=== PATIENT | male | born 1970 | race Caucasian/White ===

== ENCOUNTER 2017-12-12 12:24 | Inpatient (IN) ==
[2017-12-12] MEDS ORDERED: Tetanus/Diphtheria Toxoid Adult Vaccine Inj 0.5 ML Vial IM ONE (13:06)
[2017-12-12] MEDS ORDERED: Acetaminophen 325 MG Tablet PO ONE (13:12)
--- NOTE | 2017-12-12 13:12 | ED ---
HPI General Chief Complaint: Chest Pain Stated Complaint: Left side pain/left ankle complaint Time Seen by Provider: 12/12/17 12:46 Source: patient Mode of arrival: ambulatory Limitations: no limitations History of Present Illness HPI Narrative: 47 years old male complains of laceration to left eyebrow, left chest wall pain and left ankle pain. Patient states that he fell this morning. Patient denies loss of consciousness. She denies any headache or neck pain. Patient denies any visual change. Complaint of severe sharp pain localized left chest wall and left ankle. Patient denies any shortness of breath. Patient denies abdominal pain. Patient denies any nausea vomiting diarrhea. Patient denies any back pain. Patient states that he has productive cough recently. Patient states that he had history of left ankle injury that required surgery in the past. Patient states that he is feeling suicidal today also. complaint: fall Onset (ago): hour(s) Fall from: standing Fall witnessed: no Place fall occurred: street Loss of consciousness: none Prolonged down time: no Symptoms prior to fall: none Context: tripped/slipped Location of injury: face and chest Location of injury - extremities: Left: ankle Severity: moderate Severity scale (1-10): 7 Quality: sharp Related Data Home Medications Medication Instructions Recorded Confirmed No Known Home Medications 12/12/17 12/12/17 Allergies Allergy/AdvReac Type Severity Reaction Status Date / Time naproxen Allergy Severe Hives Unverified 12/12/17 12:48 Review of Systems ROS: all other systems reviewed are negative PMFSH Medical History Medical History Ankle fracture, left (Acute) Degenerative disc disease (Acute) Social History Social History Substance History: Active Abuse Second Hand Smoke Exposure: No Smoking Status: Current every day smoker Tobacco Type: Cigarettes How Often Do You Have a Drink Containing Alcohol: 4 or more times a week Recent Travel in [facility] within the Last 8 Weeks: No Recent Out of Country Travel within the Last 8 Weeks: No Substance Abuse Detail Marijuana: Substance Use Status: Active Immunization History Tetanus Immunization: >5 Years Hx Influenza Vaccine This Season: No Exam Narrative Exam Narrative: GENERAL: Well-nourished, well-developed patient. SKIN: Focused skin assessment warm/dry. HEAD: Normocephalic. Patient has 1.5 cm superficial laceration above left eyebrow. EYES: No scleral icterus. No injection or drainage. Pupils 1.5 mm equal reactive. NECK: Supple, trachea midline. No JVD or lymphadenopathy. No tenderness on palpation of the neck. CARDIOVASCULAR: Regular rate and rhythm without murmurs, gallops, or rubs. RESPIRATORY: Patient had mild decrease in breath sounds on the left side with some mild crepitus lateral chest wall noted. GASTROINTESTINAL: Abdomen soft, non-tender, nondistended. MUSCULOSKELETAL: Moderate tenderness on palpation left chest wall mid axillary midclavicular line area. Mild crepitus noted. No deformity noted. Mild decrease in breath sounds in the left chest. Patient has mild ecchymosis swelling tenderness lateral malleolus area of the left ankle. BACK: Nontender without obvious deformity. No CVA tenderness. Neurologic exam normal. Procedures Chest Tube Chest Tube 1: Chest Tube Location: Mid-Axillary Chest Size of Tube (cm): 28 Chest Tube Procedure: Yes betadine prep and sterile drapes applied Tube Sutured to Skin: Yes Sterile Dressing Applied: Yes Anesthesia: 1% Lidocaine w/ Epi Volume anesthetic (mL): 10 Incision made with: #11 blade Snowden of Air Prowers: Yes Tube Drainage: blood Amount of initial drainage (mL): 4 Post Procedure CXR?: Yes Patient Tolerated Procedure: Yes Post Procedure: sutured to skin Laceration Laceration 1: Site: face Size (cm): 2 Description: linear Depth: simple, single layer Pre-repair:: wound explored Skin layer closed with: dermabond Course Initial Documented Vital Signs Temperature 98.3 F 12/12/17 12:31 Pulse Rate 119 H 12/12/17 12:31 Respiratory Rate 22 12/12/17 12:31 Blood Pressure 139/100 H 12/12/17 12:31 Pulse Oximetry 100 12/12/17 12:31 Last Documented Vital Signs Temperature 98.3 F 12/12/17 12:31 Pulse Rate 84 12/12/17 17:57 Respiratory Rate 22 12/12/17 17:57 Blood Pressure 138/84 12/12/17 17:57 Pulse Oximetry 97 12/12/17 17:57 Critical Care Time Critical Care Time: Yes Total Critical Care Time: 60 Attestation: Aggregate critical care time was 60 minutes. Time to perform other separately billable procedures was not included in the critical care time. My time did not include minutes spent treating any other patients simultaneously or on activities that did not directly contribute to the patient's treatment. The services I provided to this patient were to treat and/or prevent clinically significant deterioration that could result in: I provided critical care services requiring my management, as noted below: Chart data review, documentation time, medication orders and management, vital sign assessments/reviewing monitor data, ordering and reviewing lab tests, ordering and interpreting/reviewing x-rays and diagnostic studies, care of the patient and discussion of the patient with the admitting physicians. Medical Decision Making MDM Narrative Medical decision making narrative: 47 years old male with laceration to left forehead, left chest wall and left ankle injury. Status post fall. Td booster given. Tylenol 650 mg p.o. given. Medical Screen Exam Complete: Yes Emergency Medical Condition: Yes Lab Data Lab results reviewed: Yes I reviewed the patient's lab results. Result diagrams: 12/12/17 13:25 12/12/17 13:25 Lab Results 12/12/17 12/12/17 12/12/17 Range/Units 13:25 13:25 14:40 WBC 11.1 H (4.0-11.0) th/mm3 RBC 4.98 (4.50-5.90) mil/mm3 Hgb 16.3 (13.0-17.0) gm/dL Hct 48.4 (39.0-51.0) % MCV 97.1 (80.0-100.0) fL MCH 32.7 (27.0-34.0) pg MCHC 33.7 (32.0-36.0) % RDW 14.2 (11.6-17.2) % Plt Count 264 (150-450) th/mm3 MPV 8.6 (7.0-11.0) fL Neut % (Auto) 82.6 H (16.0-70.0) % Lymph % (Auto) 9.9 (9.0-44.0) % Adair % (Auto) 6.9 (0.0-8.0) % Eos % (Auto) 0.2 (0.0-4.0) % Baso % (Auto) 0.4 (0.0-2.0) % Neut # (Auto) 9.2 H (1.8-7.7) th/mm3 Lymph # (Auto) 1.1 (1.0-4.8) th/mm3 Adair # (Auto) 0.8 (0.0-0.9) th/mm3 Eos # (Auto) 0.0 (0.0-0.4) th/mm3 Baso # (Auto) 0.0 (0.0-0.2) th/mm3 WBC Differential . Differential Comment Auto diff final PT 11.1 (9.8-11.6) sec INR 1.1 Ratio APTT 26.7 (24.3-30.1) sec Sodium 136 (136-145) meq/L Potassium 4.5 (3.5-5.1) meq/L Chloride 100 (98-107) meq/L Carbon Dioxide 24.6 (21.0-32.0) meq/L Anion Gap 11 (5-15) meq/L BUN 17 (7-18) mg/dL Creatinine 1.04 (0.60-1.30) mg/dL Estimated GFR 77 L (>89) mL/min Random Glucose 81 (74-106) mg/dL Calcium 9.3 (8.5-10.1) mg/dL Total Bilirubin 1.4 H (0.2-1.0) mg/dL AST 47 H (15-37) U/L ALT 28 (12-78) U/L Alkaline Phosphatase 94 (45-117) U/L Total Creatine Kinase 1502 H (39-308) U/L CK-MB (CK-2) 16.6 H (0.5-3.6) ng/mL CK-MB (CK-2) % 1.1 (0.0-4.0) % Troponin I Less than 0.02 L (0.02-0.05) ng/mL Total Protein 8.2 (6.4-8.2) g/dL Albumin 4.6 (3.4-5.0) g/dL Lipase 163 (73-393) U/L Serum Alcohol 4 (0-5) mg/dL Imaging Data Attestation: I personally reviewed and interpreted this imaging study as follows : Radiologist's impression: Ankle X-Ray 12/12/17 13:04 CONCLUSION: Degenerative changes identified at the tibiotalar articulation. No other abnormality identified. Old surgical hardware without visible fractures present. Ribs X-Ray 12/12/17 13:04 CONCLUSION: Large left-sided pneumothorax associated with 2 nondisplaced fractures of the left sixth and seventh rib. Extensive subcutaneous air. Chest X-Ray 12/12/17 14:38 CONCLUSION: Status post interval placement of a chest tube with reinflation of the left lung. Rib fractures are identified on the left from the fifth through seventh lateral ribs with questionable involvement of the left fourth rib. Discharge Plan Discharge Disposition Patient Disposition: 30 Still Patient Discharge Details Diagnosis: Pneumothorax, Fracture of rib Physicians Team ED Provider: Jonathan Kulkarni Primary Care Provider: Primary Care Bee Clark Attending Provider: Shaheen De Paz Status ED Status: Admitted Patient
[2017-12-12 13:45] LABS: Baso % (Auto) 0.4 % (0.0-2.0); Eos % (Auto) 0.2 % (0.0-4.0); Hematocrit 48.4 % (39.0-51.0); Hemoglobin 16.3 gm/dL (13.0-17.0); Lymph # (Auto) 1.1 th/mm3 (1.0-4.8); Lymph % (Auto) 9.9 % (9.0-44.0); Mean Corpuscular HGB Conc 33.7 % (32.0-36.0); Mean Corpuscular Hemoglobin 32.7 pg (27.0-34.0); Mean Corpuscular Volume 97.1 fL (80.0-100.0); Mean Platelet Volume 8.6 fL (7.0-11.0); Mono # (Auto) 0.8 th/mm3 (0.0-0.9); Mono % (Auto) 6.9 % (0.0-8.0); Neut # (Auto) 9.2 th/mm3 (1.8-7.7); Neut % (Auto) 82.6 % (16.0-70.0); Platelet Count 264 th/mm3 (150-450); Red Blood Count 4.98 mil/mm3 (4.50-5.90); Red Cell Distribution Width 14.2 % (11.6-17.2); White Blood Count 11.1 th/mm3 (4.0-11.0)
[2017-12-12 14:03] LABS: Alanine Aminotransferase 28 U/L (12-78); Albumin 4.6 g/dL (3.4-5.0); Anion Gap 11 meq/L (5-15); Aspartate Aminotransferase 47 U/L (15-37); Blood Urea Nitrogen 17 mg/dL (7-18); Calcium 9.3 mg/dL (8.5-10.1); Carbon Dioxide 24.6 meq/L (21.0-32.0); Chloride 100 meq/L (98-107); Glomerular Filtration Rate 77 mL/min (>89); Glucose,Random 81 mg/dL (74-106); Lipase 163 U/L (73-393); Potassium 4.5 meq/L (3.5-5.1); Sodium 136 meq/L (136-145)
[2017-12-12 14:16] LABS: Alcohol 4 mg/dL (0-5); Alkaline Phosphatase 94 U/L (45-117); Creatine Kinase 1502 U/L (39-308); Total Protein 8.2 g/dL (6.4-8.2)
[2017-12-12 14:28] LABS: CKMB Percent 1.1 % (0.0-4.0); Creatine Kinase MB 16.6 ng/mL (0.5-3.6)
[2017-12-12] MEDS ORDERED: Morphine Inj 4 MG/ML Vial IV.PUSH ONE (14:35)
[2017-12-12] MEDS ORDERED: Midazolam Inj 5 MG/ML 1 ML Vial IV.PUSH ONE (14:35)
--- NOTE | 2017-12-12 14:58 | XR ---
EXAM DATE: 12/12/2017 2:47 PM EDT AGE/SEX: 47 years / Male INDICATIONS: Left lower chest and rib pain, post fall through glass window CLINICAL DATA: This is the patient's initial encounter. Patient reports that signs and symptoms have been present for 1 day and indicates a pain score of 9/10. MEDICAL/SURGICAL HISTORY: None. None. COMPARISON: No prior exams available for comparison. FINDINGS: There is a large left-sided pneumothorax present. There are 2 nondisplaced fractures involving the le ft lateral aspect of the sixth and seventh left ribs as well as extensive subcutaneous edema and air identified within the left chest wall. The right hemithorax is clear. There is scoliosis present. The mediastinal structures appear midline. CONCLUSION: Large left-sided pneumothorax associated with 2 nondisplaced fractures of the left sixth and seventh rib. Extensive subcutaneous air. Electronically signed by: Jade Tobar MD 12/12/2017 2:57 PM EDT
[2017-12-12] MEDS: Sod Chloride 0.9% Inj 1,000 ML IV.CONT SCH (15:02)
--- NOTE | 2017-12-12 15:09 | XR ---
EXAM DATE: 12/12/2017 2:49 PM EDT AGE/SEX: 47 years / Male INDICATIONS: Left ankle pain, Lateral swelling CLINICAL DATA: This is the patient's initial encounter. Patient reports that signs and symptoms have been present for 1 day and indicates a pain score of 8/10. MEDICAL/SURGICAL HISTORY: None. . Left ankle ORIF COMPARISON: No prior exams available for comparison. FINDINGS: 3 views of the left ankle demonstrates intact surgical plate and screws traversing the distal fibula as well as partially threaded screws traversing the medial malleolus. There is mild osseous irregular ity involving the tibial plafond and and talar dome. The osseous structures are otherwise intact. No acute fractures visualized. There is mildly asymmetric left soft tissue prominence. CONCLUSION: Degenerative changes identified at the tibiotalar articulation. No other abnormality identified. Old surgical hardware without visible fractures present. Electronically signed by: Jade Tobar MD 12/12/2017 3:08 PM EDT
[2017-12-12 15:30] LABS: Activated Partial Thrombo Time 26.7 sec (24.3-30.1); INR 1.1 Ratio; Prothrombin Time 11.1 sec (9.8-11.6)
[2017-12-12] MEDS ORDERED: HYDROmorphone PF Inj 2 MG/ML Vial IV.PUSH ONE ×2 (15:31→15:56)
[2017-12-12] MEDS ORDERED: LIDOCAINE NERV BLOCK ONE (15:53)
[2017-12-12] MEDS ORDERED: EPINEPHRINE NERV BLOCK ONE (15:53)
--- NOTE | 2017-12-12 16:34 | XR ---
EXAM DATE: 12/12/2017 4:30 PM EDT AGE/SEX: 47 years / Male INDICATIONS: Status post chest tube placement. CLINICAL DATA: This is the patient's initial encounter. Patient reports that signs and symptoms have been present for 1 day and indicates a pain score of 0/10. MEDICAL/SURGICAL HISTORY: None. None. COMPARISON: [facility], RIBS LEFT MIN 3V W EXP CHEST, 12/12/2017. . FINDINGS: Single AP view of the chest demonstrates interval placement of an apically directed chest tube with r einflation of the lung. The patency noted large pneumothorax is no longer visible. There is atelectas is identified within the left lower lobe. Again noted are left-sided rib fractures right lateral nond isplaced fractures are seen involving the left fifth sixth and seventh ribs with question involvement of the fourth left rib. The right hemithorax is clear. CONCLUSION: Status post interval placement of a chest tube with reinflation of the left lung. Rib fractures are i dentified on the left from the fifth through seventh lateral ribs with questionable involvement of th e left fourth rib. Electronically signed by: Jade Tobar MD 12/12/2017 4:33 PM EDT
[2017-12-12 19:50] LABS: Amphetamine Screen,Urine Neg (Neg); Barbiturate Screen,Urine Neg (Neg); Cannabinoid Screen,Urine Pos (Neg); Cocaine Screen,Urine Neg (Neg)
[2017-12-12 20:07] LABS: Opiate Screen,Urine Pos (Neg)
[2017-12-12] MEDS ORDERED: HYDROmorphone PF Inj 2 MG/ML Vial IV.PUSH PRN (20:27)
--- NOTE | 2017-12-12 21:52 | MH ---
cc: Shaheen D ePaz MD DATE OF ADMISSION: 12/12/2017 HISTORY OF PRESENT ILLNESS: This is a 47-year-old male who presented to the emergency room after a fall. The patient states that he was manipulated in a glass window. He fell and the glass window fell on top of him. He came into the emergency room because of chest pain and shortness of breath. On evaluation by the emergency room physician, he was found to have a pneumothorax and rib fractures. A chest tube was placed by the emergency room physician. Trauma service was requested for admission. On my evaluation, the patient was lying on the stretcher in distress secondary to pain. He complained of pain in his left chest pain and pain with inspiration. He also complained of left ankle pain. The patient denies loss of consciousness and little abdominal pain. He states he normally has paresthesia in his left foot, which has not changed. PAST MEDICAL HISTORY: Significant for prior trauma with left-sided rib fractures and ankle fracture. PAST SURGICAL HISTORY: Significant for plating of the left ankle. MEDICATIONS: The patient is not on any chronic medications. SOCIAL HISTORY: He has a history of tobacco use. He states he does consume alcohol regularly and would like to go to rehab for this. FAMILY HISTORY: Noncontributory. PHYSICAL EXAMINATION: GENERAL: The patient is lying on the stretcher. HEENT: Pupils are equal and reactive. He has a 2 cm laceration over the left eyebrow. His trachea is midline. NECK: Nontender. LUNGS: Respirations clear. Left chest tube in place. CARDIOVASCULAR: Regular. GASTROINTESTINAL: Soft, nontender. MUSCULOSKELETAL: The patient has a laceration over his right vilchis. Ecchymosis over his left ankle. No deformity. BACK: Nontender. RADIOLOGIC IMAGES: Left-sided rib fractures, V through VII, and possible IV. Chest reexpanded after chest tube. Left ankle x-ray, no fracture. ASSESSMENT: This is a patient who sustained traumatic pneumothorax with rib fractures. The patient is being admitted. We will provide pain management, pulmonary toilet. We will monitor hemodynamics. Shaheen De Paz MD JLS/sv , 09:09 PM , 09:17 PM
[2017-12-12] MEDS: Pantoprazole Inj 40 MG Vial IV.PUSH SCH (22:31)
[2017-12-12] MEDS: Docusate Sodium 100 MG Capsule PO SCH (22:31)
[2017-12-12] MEDS: diazePAM 2 MG Tablet PO SCH (22:31)
[2017-12-12] MEDS: HYDROmorphone PF Inj 2 MG/ML Vial IV.PUSH PRN (22:32)
[2017-12-12] MEDS: Multivitamin Inj 10 ML, Thiamine Inj 100 MG, Folic Acid Inj 1 MG in Sodium Chlor 0.9% I... IV.SIG SCH (22:33)
[2017-12-12 23:36] LABS: Alanine Aminotransferase 25 U/L (12-78); Albumin 3.8 g/dL (3.4-5.0); Alkaline Phosphatase 81 U/L (45-117); Anion Gap 9 meq/L (5-15); Aspartate Aminotransferase 45 U/L (15-37); Blood Urea Nitrogen 14 mg/dL (7-18); Calcium 7.9 mg/dL (8.5-10.1); Carbon Dioxide 29.1 meq/L (21.0-32.0); Chloride 103 meq/L (98-107); Creatine Kinase 1417 U/L (39-308); Glomerular Filtration Rate Greater Than 89 mL/min (>89); Glucose,Random 86 mg/dL (74-106); Potassium 4.4 meq/L (3.5-5.1); Sodium 141 meq/L (136-145); Total Protein 6.9 g/dL (6.4-8.2)
[2017-12-13 00:11] LABS: CKMB Percent 0.7 % (0.0-4.0)
[2017-12-13 00:12] LABS: Creatine Kinase MB 9.9 ng/mL (0.5-3.6)
[2017-12-13] MEDS: HYDROmorphone PF Inj 2 MG/ML Vial IV.PUSH PRN ×5 (02:30→21:31)
[2017-12-13] MEDS: Sod Chloride 0.9% Inj 1,000 ML IV.CONT SCH ×2 (02:56→08:36)
[2017-12-13] MEDS ORDERED: Chlorhexidine Gluconate 2% 1 Pack (2 Cloths) TOPICAL SCH (04:00)
[2017-12-13] MEDS ORDERED: Chlorhexidine Gluconate 2% 1 Pack (2 Cloths) TOPICAL PRN (04:00)
[2017-12-13] MEDS: diazePAM 2 MG Tablet PO SCH ×3 (05:23→21:33)
[2017-12-13 05:26] LABS: Baso % (Auto) 0.3 % (0.0-2.0); Eos # (Auto) 0.1 th/mm3 (0.0-0.4); Eos % (Auto) 1.2 % (0.0-4.0); Hematocrit 40.7 % (39.0-51.0); Hemoglobin 13.7 gm/dL (13.0-17.0); Lymph # (Auto) 1.6 th/mm3 (1.0-4.8); Mean Corpuscular HGB Conc 33.8 % (32.0-36.0); Mean Corpuscular Hemoglobin 33.3 pg (27.0-34.0); Mean Corpuscular Volume 98.6 fL (80.0-100.0); Mean Platelet Volume 8.7 fL (7.0-11.0); Mono # (Auto) 0.6 th/mm3 (0.0-0.9); Mono % (Auto) 8.1 % (0.0-8.0); Neut # (Auto) 5.3 th/mm3 (1.8-7.7); Neut % (Auto) 69.4 % (16.0-70.0); Platelet Count 185 th/mm3 (150-450); Red Blood Count 4.13 mil/mm3 (4.50-5.90); Red Cell Distribution Width 14.1 % (11.6-17.2); White Blood Count 7.6 th/mm3 (4.0-11.0)
[2017-12-13 05:51] LABS: Anion Gap 6 meq/L (5-15); Calcium 7.9 mg/dL (8.5-10.1); Carbon Dioxide 28.2 meq/L (21.0-32.0); Chloride 103 meq/L (98-107); Glomerular Filtration Rate Greater Than 89 mL/min (>89); Glucose,Random 83 mg/dL (74-106); Potassium 4.3 meq/L (3.5-5.1); Sodium 137 meq/L (136-145)
[2017-12-13 06:00] LABS: Blood Urea Nitrogen 16 mg/dL (7-18)
[2017-12-13] MEDS: Lidocaine 5% Patch T-DERMAL SCH (08:23)
[2017-12-13] MEDS: Docusate Sodium 100 MG Capsule PO SCH ×2 (08:37→21:33)
--- NOTE | 2017-12-13 08:41 | XR ---
EXAM DATE: 12/13/2017 8:37 AM EDT AGE/SEX: 47 years / Male INDICATIONS: Pneumothorax. Rib fractures on the left from the fifth through seventh lateral ribs and possibly left fourth rib. CLINICAL DATA: This is the patient's subsequent encounter. Patient reports that signs and symptoms h ave been present for 2 days and indicates a pain score of 6/10. MEDICAL/SURGICAL HISTORY: None. . Cervical spine surgery. [place] [facility] [place]. . FINDINGS: AP semiupright portable view of the chest demonstrates stable positioning of the left-sided chest tub e. The left hemithorax is mildly hypoaerated as compared to the right however the pneumothorax is no longer visible. There has been decreased subcutaneous air on the left. Stable left-sided rib fracture s. Heart size is normal. Severe scoliosis is noted. CONCLUSION: Stable left-sided chest tube. No visible left-sided pneumothorax. Decreased subcutaneous air on the l eft. Otherwise stable exam. Electronically signed by: Jade Tobar MD 12/13/2017 8:40 AM EDT
[2017-12-13] MEDS: Ketorolac Inj 30 MG/ML (IVP) Vial IV.PUSH SCH ×3 (11:13→23:55)
--- NOTE | 2017-12-13 11:48 | P.PNCC ---
Subjective Brief History: REDDING: This is a 47 year old male who sustained a fall. The patient states that he fell through a window as he was trying to put a new window frame in his bedroom. He came to the hospital because he developed chest pain, and shortness of breath. INJURIES: LEFT eyebrow laceration (dermabond) LARGE LEFT rib fx (4,5,6,7) LEFT PTX PMHx: Cervical fusion surgery. LEFT ankle surgery. Smoker. ETOH. Substance abuse. Procedures: 12/12: Left chest tube placement Consults: Case management. 24 Hour Review/Hospital Course: 12/13/2017 Patient sitting up in bed. No distress noted. Patient was able to tell us in detail how this injury occurred. He was putting a new window in his bedroom, and fell through the window. Patient tells us of numerous orthopedic and cervical spine injuries and repairs that he has had. Patient states, "I am all banged up." Patient is requesting in-patient drug and alcohol rehab when he is discharged from the hospital. Objective Vital Signs / I&O: Vital Signs 12/12/17 12:31 12/12/17 12:54 12/12/17 16:00 Temperature 98.3 F Pulse Rate 119 H 95 H 104 H Respiratory Rate 22 27 H 32 H Blood Pressure 139/100 H 165/99 H 138/77 Pulse Oximetry 100 95 96 12/12/17 16:21 12/12/17 16:47 12/12/17 17:57 Temperature Pulse Rate 98 H 87 84 Respiratory Rate 20 19 22 Blood Pressure 119/69 119/78 138/84 Pulse Oximetry 98 97 97 12/12/17 20:10 12/12/17 21:25 12/12/17 23:02 Temperature 98.5 F Pulse Rate 85 Respiratory Rate 18 19 15 Blood Pressure 146/93 H Pulse Oximetry 99 12/13/17 00:00 12/13/17 08:00 Temperature 98.5 F Pulse Rate 90 Respiratory Rate 13 Blood Pressure 144/82 H Pulse Oximetry 98 100 Intake & Output 12/12/17 12/13/17 12/13/17 18:59 06:59 18:59 Intake Total 2061.2 / 2061.2 100 / 100 Output Total 650 / 650 Balance 1411.2 / 1411.2 100 / 100 Weight 72.575 kg 68.4 kg Intake: IV 1611.2 / 1611.2 100 / 100 NS Inj 1,000 ML @ 125 mls/hr IV 1000 / 1000 .CONT .Q8H FERNANDA Rx#:[id number] Ofirmev Inj 1,000 mg In 100 ml 100 / 100 100 / 100 @ 400 mls/hr IV.SIG Q6H FERNANDA Rx# :[id number] MVI-12 Inj 10 ML Thiamine Inj 511.2 / 511.2 100 MG Folvite Inj 1 MG In NS Inj 500 ML @ 125 mls/hr IV.SIG Q24H FERNANDA Rx#:[id number] Oral 450 / 450 Output: Urine 500 / 500 Wound Drainage 150 / 150 Left Posterior Chest 150 / 150 Other: Weight On Admission 68.4 kg Result Diagrams: 12/13/17 04:32 12/13/17 04:32 Imaging: Impressions Ankle X-Ray 12/12/17 13:04 CONCLUSION: Degenerative changes identified at the tibiotalar articulation. No other abnormality identified. Old surgical hardware without visible fractures present. Ribs X-Ray 12/12/17 13:04 CONCLUSION: Large left-sided pneumothorax associated with 2 nondisplaced fractures of the left sixth and seventh rib. Extensive subcutaneous air. Chest X-Ray 12/12/17 14:38 CONCLUSION: Status post interval placement of a chest tube with reinflation of the left lung. Rib fractures are identified on the left from the fifth through seventh lateral ribs with questionable involvement of the left fourth rib. Chest X-Ray 12/13/17 07:45 CONCLUSION: Stable left-sided chest tube. No visible left-sided pneumothorax. Decreased subcutaneous air on the left. Otherwise stable exam. Objective Remarks: GENERAL: This is a 47-year-old male sitting up in bed. No distress SKIN: Warm and dry. HEAD: Atraumatic. Normocephalic. EYES: PERRLA ENT: No nasal bleeding or discharge. Mucous membranes pink and moist. NECK: Trachea midline. No JVD. CARDIOVASCULAR: Regular rate and rhythm. RESPIRATORY: No accessory muscle use. Lungs are clear to auscultation. Breath sounds equal bilaterally. No distress or dyspnea. Left lateral chest tube in place to Pleur-evac drainage system at 20 cm suction. No air leak noted. Dressing CDI. GASTROINTESTINAL: BS + x 4 quads. Abdomen soft, non-tender, nondistended. MUSCULOSKELETAL: Extremities without cyanosis, or edema. + peripheral pulses x 4 extremities. Warm with good capillary refill and sensation. MAEW. NEUROLOGICAL: Awake and alert. Normal speech and pattern. Assessment and Plan - Assessment (1) Pneumothorax Code(s): J93.9 - Pneumothorax, unspecified Status: Acute (2) Fracture of rib Code(s): S22.39XA - Fracture of one rib, unspecified side, initial encounter for closed fracture Status: Acute Plan: REDDING: This is a 47 year old male who sustained a fall. The patient states that he fell through a window as he was trying to put a new window frame in his bedroom. He came to the hospital because he developed chest pain, and shortness of breath. INJURIES: LEFT eyebrow laceration (dermabond) LARGE LEFT rib fx (4,5,6,7) LEFT PTX PMHx: Cervical fusion surgery. LEFT ankle surgery. Smoker. ETOH. Substance abuse. Procedures: 12/12: Left chest tube placement Consults: Case management. Diet: Regular diet. Tolerating po diet. Encourage good po intake with each meal. Pulmonary: Encourage good pulmonary toileting. IS at bedside and pt encouraged to use. Rationale for use explained to patient, and verbalized understanding. Left lateral chest tube in place to Pleur-evac drainage system to 20 cm suction. Dressing CDI. No air leak noted. A.m. chest x-ray shows no PTX. Chest tube output = 150 ml / 24 hrs. Chest tube placed to waterseal. Follow-up chest x-ray in the morning. PAIN Management: Oxycodone 5-10 mg q 4h. Dilaudid 1 mg q 3h for breakthrough pain. V alium 2 mg q 8h. Added Toradol 15 mg q 6h. Lidoderm patch. OFIRMEV x 24h. Activity: OOB. PT ordered. GI prophylaxis: Protonix 40 mg IV Bowel regimen: Colace. MOM PRN. LBM: o DVT prophylaxis: Mechanical VTE with SCDs. Chemical management with Lovenox SQ. DC Planning: Case management consulted for assistance with final discharge disposition. Plan for discharge in 1-2 days once pain managed, and chest tube has been removed without incident. Emotional support provided to patient and family at bedside and plan of care discussed. Discussed with RN at bedside during trauma rounds. Discussed pt condition and plan of care with collaborating trauma surgeon. Patient is hemodynamically stable in the ICU, therefore he can be transferred and managed on the med/surg floor. The trauma team will round each day, and evaluate plan of care on a daily basis. LARGE LEFT rib fx (4,5,6,7) LEFT PTX O2 nasal cannula as needed Supportive care Aggressive pulmonary toileting Left lateral chest tube in place to Pleur-evac drainage system at 20 cm suction no air leak noted dressing CDI- Chest tube output = 150 ml / 24 hrs A.m. chest x-ray shows no PTX. Decreased chest tube to waterseal. Follow-up chest x-ray in the morning. Daily chest tube dressing changes Pain management PT ordered Encourage out of bed Bowel regimen DVT prophylaxis (1) Pneumothorax Qualifiers: Pneumothorax type: traumatic Encounter type: initial encounter Qualified Code(s): S27.0XXA - Traumatic pneumothorax, initial encounter (2) Fracture of rib Qualifiers: Encounter type: initial encounter Rib fracture type: multiple ribs Fracture type: closed Laterality: left Qualified Code(s): S22.42XA - Multiple fractures of ribs, left side, initial encounter for closed fracture
[2017-12-13] MEDS: Pantoprazole Inj 40 MG Vial IV.PUSH SCH (21:32)
[2017-12-13] MEDS: Multivitamin Inj 10 ML, Thiamine Inj 100 MG, Folic Acid Inj 1 MG in Sodium Chlor 0.9% I... IV.SIG SCH (22:34)
--- NOTE | 2017-12-13 23:00 | XR ---
EXAM DATE: 12/13/2017 10:49 PM EDT AGE/SEX: 47 years / Male INDICATIONS: Evaluate pneumothorax CLINICAL DATA: This is the patient's subsequent encounter. Patient reports that signs and symptoms h ave been present for 1 day and indicates a pain score of 7/10. MEDICAL/SURGICAL HISTORY: . fracture ribs Fusion, cervical. COMPARISON: [facility] [place] 1V SINGLE AP, 12/13/2017. . FINDINGS: A single AP expiratory erect view of the chest was obtained and again demonstrates a left-sided chest tube in place with no visualized pneumothorax. Subcutaneous emphysema is noted over the upper and la teral chest wall. There is mild patchy opacity in the lung bases. The heart size remains at the upper limits of normal. The cardiomediastinal contours are unremarkable. Osseous structures stable and in tact with moderate to severe scoliosis. The patient is status post lower cervical fusion. CONCLUSION: 1. The left-sided chest tube remains in place with no visualized pneumothorax. 2. Hazy opacity remains at the left lung base. Electronically signed by: Pelon Dalton MD 12/13/2017 10:59 PM EDT
[2017-12-14] MEDS: Ketorolac Inj 30 MG/ML (IVP) Vial IV.PUSH SCH ×4 (05:29→22:01)
[2017-12-14] MEDS: HYDROmorphone PF Inj 2 MG/ML Vial IV.PUSH PRN ×5 (05:30→21:23)
[2017-12-14] MEDS: diazePAM 2 MG Tablet PO SCH ×3 (05:31→20:06)
--- NOTE | 2017-12-14 06:57 | XR ---
EXAM DATE: 12/14/2017 6:52 AM EDT AGE/SEX: 47 years / Male INDICATIONS: Follow up trauma, pain left chest, evaluate left side chest tube CLINICAL DATA: This is the patient's subsequent encounter. Patient reports that signs and symptoms h ave been present for 2 days and indicates a pain score of 0/10. MEDICAL/SURGICAL HISTORY: . C-6 fracture, T-12, left ankle fracture . cervical spine fusion COMPARISON: [facility], CHEST 1V SINGLE AP, 12/13/2017. . FINDINGS: Left chest tube without pneumothorax. Subcutaneous air in the left chest wall. Mild basilar airspace disease. Moderate scoliosis. CONCLUSION: Left chest tube without pneumothorax. Basilar airspace disease is stable. Subcutaneous air in the sof t tissues. Electronically signed by: Adán Lugo MD 12/14/2017 6:56 AM EDT
[2017-12-14 07:00] LABS: Baso % (Auto) 0.3 % (0.0-2.0); Eos # (Auto) 0.3 th/mm3 (0.0-0.4); Eos % (Auto) 4.4 % (0.0-4.0); Hematocrit 40.3 % (39.0-51.0); Hemoglobin 13.6 gm/dL (13.0-17.0); Lymph # (Auto) 1.5 th/mm3 (1.0-4.8); Lymph % (Auto) 26.2 % (9.0-44.0); Mean Corpuscular HGB Conc 33.7 % (32.0-36.0); Mean Corpuscular Hemoglobin 33.3 pg (27.0-34.0); Mean Corpuscular Volume 98.8 fL (80.0-100.0); Mean Platelet Volume 8.9 fL (7.0-11.0); Mono # (Auto) 0.5 th/mm3 (0.0-0.9); Mono % (Auto) 7.6 % (0.0-8.0); Neut # (Auto) 3.6 th/mm3 (1.8-7.7); Neut % (Auto) 61.5 % (16.0-70.0); Platelet Count 177 th/mm3 (150-450); Red Blood Count 4.08 mil/mm3 (4.50-5.90); Red Cell Distribution Width 14.2 % (11.6-17.2); White Blood Count 5.9 th/mm3 (4.0-11.0)
[2017-12-14 07:35] LABS: Alanine Aminotransferase 19 U/L (12-78); Alkaline Phosphatase 65 U/L (45-117); Anion Gap 6 meq/L (5-15); Aspartate Aminotransferase 26 U/L (15-37); Blood Urea Nitrogen 10 mg/dL (7-18); Calcium 8.1 mg/dL (8.5-10.1); Carbon Dioxide 30.5 meq/L (21.0-32.0); Chloride 103 meq/L (98-107); Glomerular Filtration Rate Greater Than 89 mL/min (>89); Glucose,Random 72 mg/dL (74-106); Potassium 4.3 meq/L (3.5-5.1); Sodium 139 meq/L (136-145); Total Protein 5.9 g/dL (6.4-8.2)
[2017-12-14] MEDS: Lidocaine 5% Patch T-DERMAL SCH (09:19)
[2017-12-14] MEDS: Enoxaparin Inj 40 MG/0.4 ML Syringe SQ SCH (09:20)
[2017-12-14] MEDS: Docusate Sodium 100 MG Capsule PO SCH ×2 (09:20→20:06)
--- NOTE | 2017-12-14 10:14 | P.PN ---
Subjective Interval history: TRAUMA PTD: 2 Pt sitting up in bed. No distress noted. Pt states, "I'm not very good." Pt c/o pain and soreness to CT site. Pt c/o LEFT ankle pain and swelling. "I can't walk." Physical Exam Vital signs: Vital Signs 12/13/17 12:00 12/13/17 16:00 12/13/17 20:00 Temperature 97.8 F Pulse Rate 74 74 67 Respiratory Rate 18 Blood Pressure 137/75 137/75 140/87 Pulse Oximetry 96 12/14/17 00:00 12/14/17 04:00 12/14/17 04:18 Temperature 97.7 F 97.7 F Pulse Rate 76 79 Respiratory Rate 17 17 20 Blood Pressure 133/84 136/79 Pulse Oximetry 96 96 12/14/17 05:28 Temperature Pulse Rate Respiratory Rate 18 Blood Pressure Pulse Oximetry Intake & Output 12/13/17 12/14/17 12/14/17 18:59 06:59 18:59 Intake Total 1200 / 1200 500 / 500 500 / 500 Output Total 150 / 150 600 / 600 Balance 1200 / 1200 350 / 350 -100 / -100 Weight 68.4 kg Intake: IV 1200 / 1200 500 / 500 500 / 500 NS Inj 1,000 ML @ 125 mls/hr IV 1000 / 1000 .CONT .Q8H FERNANDA Rx#:[id number] Ofirmev Inj 1,000 mg In 100 ml 200 / 200 @ 400 mls/hr IV.SIG Q6H FERNANDA Rx# :[id number] MVI-12 Inj 10 ML Thiamine Inj 500 / 500 500 / 500 100 MG Folvite Inj 1 MG In NS Inj 500 ML @ 125 mls/hr IV.SIG Q24H FERNANDA Rx#:[id number] Output: Urine 600 / 600 Chest Tube Drainage 150 / 150 Left Mid-Axillary Chest 150 / 150 Other: Date of Last Bowel Movement 12/13/17 Narrative: GENERAL: This is a 47-year-old male sitting up in bed. No distress SKIN: Warm and dry. HEAD: Atraumatic. Normocephalic. EYES: PERRLA ENT: No nasal bleeding or discharge. Mucous membranes pink and moist. NECK: Trachea midline. No JVD. CARDIOVASCULAR: Regular rate and rhythm. RESPIRATORY: No accessory muscle use. Lungs are clear to auscultation. Breath sounds equal bilaterally. No distress or dyspnea. Left lateral chest tube in place to Pleur-evac drainage system to water seal. No air leak noted. Dressing CDI. GASTROINTESTINAL: BS + x 4 quads. Abdomen soft, non-tender, nondistended. MUSCULOSKELETAL: Extremities without cyanosis, or edema. Slight swelling to left ankle area. + peripheral pulses x 4 extremities. Warm with good capillary refill and sensation. MAEW. NEUROLOGICAL: Awake and alert. Normal speech and pattern. Results - Labs CBC & Chem 7: 12/14/17 04:45 12/14/17 04:45 Laboratory Results - last 24 hr 12/14/17 12/14/17 04:45 04:45 WBC 5.9 RBC 4.08 L Hgb 13.6 Hct 40.3 MCV 98.8 MCH 33.3 MCHC 33.7 RDW 14.2 Plt Count 177 MPV 8.9 Neut % (Auto) 61.5 Lymph % (Auto) 26.2 [place] % (Auto) 7.6 Eos % (Auto) 4.4 H Baso % (Auto) 0.3 Neut # (Auto) 3.6 Lymph # (Auto) 1.5 [place] # (Auto) 0.5 Eos # (Auto) 0.3 Baso # (Auto) 0.0 WBC Differential . Differential Comment Auto diff final Sodium 139 Potassium 4.3 Chloride 103 Carbon Dioxide 30.5 Anion Gap 6 BUN 10 Creatinine 0.69 Estimated GFR Greater than 89 Random Glucose 72 L Calcium 8.1 L Total Bilirubin 0.6 AST 26 ALT 19 Alkaline Phosphatase 65 Total Protein 5.9 L D Albumin 3.0 L D - Imaging Impressions Chest X-Ray 12/13/17 22:31 CONCLUSION: 1. The left-sided chest tube remains in place with no visualized pneumothorax. 2. Hazy opacity remains at the left lung base. Chest X-Ray 12/14/17 06:00 CONCLUSION: Left chest tube without pneumothorax. Basilar airspace disease is stable. Subcutaneous air in the soft tissues. Assessment and Plan - Assessment (1) Pneumothorax Code(s): J93.9 - Pneumothorax, unspecified Status: Acute (2) Fracture of rib Code(s): S22.39XA - Fracture of one rib, unspecified side, initial encounter for closed fracture Status: Acute - Plan SLEETMUTE: This is a 47 year old male who sustained a fall. The patient states that he fell through a window as he was trying to put a new window frame in his bedroom. He came to the hospital because he developed chest pain, and shortness of breath. INJURIES: LEFT eyebrow laceration (dermabond) LARGE LEFT rib fx (4,5,6,7) LEFT PTX PMHx: Cervical fusion surgery. LEFT ankle surgery. Smoker. ETOH. Substance abuse. Procedures: 12/12: Left chest tube placement Consults: Case management. Patient is complaining of LEFT ankle pain and swelling. Original 3 view x-ray did not show injury/fracture. Will obtain CT of his left ankle to further evaluate. Diet: Regular diet. Tolerating po diet. Encourage good po intake with each meal. Pulmonary: Encourage good pulmonary toileting. IS at bedside and pt encouraged to use. Rationale for use explained to patient, and verbalized understanding. Left lateral chest tube in place to Pleur-evac drainage system to water seal. Dressing CDI. No air leak noted. A.m. chest x-ray shows no PTX. Chest tube output = 150 ml / [address] until output decreases. Follow-up chest x-ray in the morning. PAIN Management: Oxycodone 5-10 mg q 4h. Dilaudid 1 mg q 3h for breakthrough pain. Valium 2 mg q 8h. Toradol 15 mg q 6h. Lidoderm patch. Activity: OOB. PT ordered. GI prophylaxis: Protonix 40 mg IV Bowel regimen: Colace. MOM PRN. LBM: o DVT prophylaxis: Mechanical VTE with SCDs. Chemical management with Lovenox 40 mg QD SQ. DC Planning: Case management consulted for assistance with final discharge disposition. Plan for discharge in 1-2 days once pain managed, and chest tube has been removed without incident. Emotional support provided to patient and family at bedside and plan of care discussed. Discussed with RN at bedside during trauma rounds. Discussed pt condition and plan of care with collaborating trauma surgeon. Patient is hemodynamically stable in the ICU, therefore he can be transferred and managed on the med/surg floor. The trauma team will round each day, and evaluate plan of care on a daily basis. LARGE LEFT rib fx (4,5,6,7) LEFT PTX O2 nasal cannula as needed Supportive care Aggressive pulmonary toileting Left lateral chest tube in place to Pleur-evac drainage system at water seal. No air leak noted dressing CDI- Chest tube output = 150 ml / 24 hrs A.m. chest x-ray shows no PTX. . Follow-up chest x-ray in the morning. Daily chest tube dressing changes Pain management PT ordered Encourage out of bed Bowel regimen DVT prophylaxis Left ankle pain and swelling Supportive care X-ray left ankle/3 views is negative for fracture We will obtain CT left ankle to further evaluate pain and swelling Pain management PT and OT ordered ETOH Substance abuse Pt is requesting inpatient drug and alcohol rehab. Consulted to Case Management to assist NPsych consult DC planning to follow up with [facility]. - Attending Attestation The exam, history, and the medical decision-making described in the above note were completed with the assistance of the mid-level provider. I reviewed and agree with the findings presented. I attest that I had a [id number] encounter with the patient on the same day, and personally performed and documented my assessment and findings in the medical record. (1) Pneumothorax Qualifiers: Pneumothorax type: traumatic Encounter type: initial encounter Qualified Code(s): S27.0XXA - Traumatic pneumothorax, initial encounter (2) Fracture of rib Qualifiers: Encounter type: initial encounter Rib fracture type: multiple ribs Fracture type: closed Laterality: left Qualified Code(s): S22.42XA - Multiple fractures of ribs, left side, initial encounter for closed fracture
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
--- NOTE | 2017-12-14 14:55 | CT ---
EXAM DATE: 12/14/2017 1:48 PM EDT AGE/SEX: 47 years / Male INDICATIONS: Trauma, left ankle pain and swelling. CLINICAL DATA: This is the patient's initial encounter. Patient reports that signs and symptoms have been present for 2 days and indicates a pain score of 4/10. MEDICAL/SURGICAL HISTORY: None. None. RADIATION DOSE: 7.29 CTDI (mGy) COMPARISON: No prior exams available for comparison. TECHNIQUE: Multiple contiguous axial images were acquired using a multirow detector CT scanner witho ut contrast. Multiplanar reconstruction was performed in the sagittal and coronal planes. Using aut omated exposure control and adjustment of the mA and/or kV according to patient size, radiation dose was kept as low as reasonably achievable to obtain optimal diagnostic quality images. DICOM format [place] [facility] data is available electronically for review and comparison. FINDINGS: Hardware is present with a cortical lag screw the medial malleolus. Plate with screws is seen bridgin g the fibular fracture. There is generalized soft tissue swelling without bony destruction. I do not see a defined fluid collection to suggest abscess. Moderate artifact is present from hardware. CONCLUSION: 1. Moderate artifact from hardware. I don't see a defined fluid collection. I don't see any bony carlosm anuel truction. Electronically signed by: Roberto Beatty MD 12/14/2017 2:54 PM EDT
[2017-12-14] MEDS: Pantoprazole Inj 40 MG Vial IV.PUSH SCH (20:06)
[2017-12-14] MEDS: Multivitamin Inj 10 ML, Thiamine Inj 100 MG, Folic Acid Inj 1 MG in Sodium Chlor 0.9% I... IV.SIG SCH (21:24)
[2017-12-15] MEDS: diazePAM 2 MG Tablet PO SCH ×3 (04:46→20:19)
[2017-12-15] MEDS: Ketorolac Inj 30 MG/ML (IVP) Vial IV.PUSH SCH ×4 (04:46→22:22)
--- NOTE | 2017-12-15 07:01 | XR ---
EXAM DATE: 12/15/2017 6:55 AM EDT AGE/SEX: 47 years / Male INDICATIONS: Short of breath, pain left chest, evaluate left side chest tube CLINICAL DATA: This is the patient's subsequent encounter. Patient reports that signs and symptoms h ave been present for 3 days and indicates a pain score of 9/10. MEDICAL/SURGICAL HISTORY: . pneumothorax, C-6, T-12, left ankle fractures . cervical fusion COMPARISON: [facility], CHEST 1V SINGLE AP, 12/14/2017. . FINDINGS: A very small left apical pneumothorax is noted. Left chest tube remains in place. Left basilar airspace disease is still present. Heart and mediastinal structures are stable. CONCLUSION: Very small left apical pneumothorax Persistent left basilar airspace disease. Electronically signed by: Jw Eduardo MD 12/15/2017 7:00 AM EDT
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
--- NOTE | 2017-12-15 08:56 | P.PN ---
Subjective Interval history: TRAUMA PTD: 3 Pt sittingup on the side of the bed. No distress noted. Pt states, "I really hurt. I'm in alot of pain." Discussed CT ankle results and encourage pt to be OOB and WBAT LLE. Physical Exam Vital signs: Vital Signs 12/14/17 11:28 12/14/17 19:07 12/15/17 00:38 Temperature 98.4 F 98.3 F Pulse Rate 80 74 Respiratory Rate 18 18 Blood Pressure 159/98 H 149/80 H Pulse Oximetry 96 98 94 L 12/15/17 05:05 Temperature 98.4 F Pulse Rate 76 Respiratory Rate 18 Blood Pressure 131/67 Pulse Oximetry 94 L Intake & Output 12/14/17 12/15/17 12/15/17 18:59 06:59 18:59 Intake Total 1260 / 1260 871.2 / 871.2 Output Total 610 / 610 Balance 650 / 650 843.2 / 843.2 Weight 68.4 kg Intake: IV 500 / 500 511.2 / 511.2 MVI-12 Inj 10 ML Thiamine Inj 500 / 500 511.2 / 511.2 100 MG Folvite Inj 1 MG In NS Inj 500 ML @ 125 mls/hr IV.SIG Q24H FERNANDA Rx#:[id number] Oral 760 / 760 360 / 360 Output: Urine 600 / 600 Chest Tube Drainage Left Mid-Axillary Chest Other: # Voids 5 4 Date of Last Bowel Movement 12/13/17 12/13/17 # Bowel Movements 0 0 Narrative: GENERAL: This is a 47-year-old male sitting up on the side of the bed. No distress SKIN: Warm and dry. HEAD: Atraumatic. Normocephalic. EYES: PERRLA ENT: No nasal bleeding or discharge. Mucous membranes pink and moist. NECK: Trachea midline. No JVD. CARDIOVASCULAR: Regular rate and rhythm. RESPIRATORY: No accessory muscle use. Lungs are clear to auscultation. Breath sounds equal bilaterally. No distress or dyspnea. Left lateral chest tube in place to Pleur-evac drainage system increased to 20 cm sx. No air leak noted. Dressing CDI. GASTROINTESTINAL: BS + x 4 quads. Abdomen soft, non-tender, nondistended. MUSCULOSKELETAL: Extremities without cyanosis, or edema. Slight swelling to left ankle area. + peripheral pulses x 4 extremities. Warm with good capillary refill and sensation. MAEW. NEUROLOGICAL: Awake and alert. Normal speech and pattern. Results - Labs CBC & Chem 7: 12/14/17 04:45 12/14/17 04:45 - Imaging Impressions Ankle CT 12/14/17 00:00 CONCLUSION: 1. Moderate artifact from hardware. I don't see a defined fluid collection. I don't see any bony destruction. Chest X-Ray 12/15/17 06:00 CONCLUSION: Very small left apical pneumothorax Persistent left basilar airspace disease. Assessment and Plan - Assessment (1) Pneumothorax Code(s): J93.9 - Pneumothorax, unspecified Status: Acute (2) Fracture of rib Code(s): S22.39XA - Fracture of one rib, unspecified side, initial encounter for closed fracture Status: Acute - Plan [place]: This is a 47 year old male who sustained a fall. The patient states that he fell through a window as he was trying to put a new window frame in his bedroom. He came to the hospital because he developed chest pain, and shortness of breath. INJURIES: LEFT eyebrow laceration (dermabond) LARGE LEFT rib fx (4,5,6,7) LEFT PTX PMHx: Cervical fusion surgery. LEFT ankle surgery. Smoker. ETOH. Substance abuse. Procedures: 12/12: Left chest tube placement Consults: Case management. Diet: Regular diet. Tolerating po diet. Encourage good po intake with each meal. Pulmonary: Encourage good pulmonary toileting. IS at bedside and pt encouraged to use. Rationale for use explained to patient, and verbalized understanding. AM CXR shows tiny apical PTX. Left lateral chest tube in place to Pleur-evac drainage system increased to 20 cm sx. Dressing CDI. No air leak noted. Chest tube output = 10 ml / 24 hrs. Follow up CXR in the AM. PAIN Management: Oxycodone 5-10 mg q 4h. Dilaudid 1 mg q 3h for breakthrough pain. Valium 2 mg q 8h. Toradol 15 mg q 6h. Lidoderm patch. Activity: OOB. PT ordered. GI prophylaxis: Protonix 40 mg IV Bowel regimen: Colace. MOM PRN. LBM: o DVT prophylaxis: Mechanical VTE with SCDs. Chemical management with Lovenox 40 mg QD SQ. DC Planning: Case management consulted for assistance with final discharge disposition. Plan for discharge in 1-2 days once pain managed, and chest tube has been removed without incident. Emotional support provided to patient and family at bedside and plan of care discussed. Discussed with RN at bedside during trauma rounds. Discussed pt condition and plan of care with collaborating trauma surgeon. Patient is hemodynamically stable and managed on the med/surg floor. The trauma team will round each day, and evaluate plan of care on a daily basis. LARGE LEFT rib fx (4,5,6,7) LEFT PTX O2 nasal cannula as needed Supportive care Aggressive pulmonary toileting AM CXR shows tiny apical PTX. Left lateral chest tube in place to Pleur-evac drainage system increased to 20 cm sx. No air leak noted. Dressing CDI- Chest tube output = 10 ml / 24 hrs Follow-up chest x-ray in the morning. Daily chest tube dressing changes Pain management PT ordered Encourage out of bed Bowel regimen DVT prophylaxis Left ankle pain and swelling Supportive care X-ray left ankle/3 views is negative for fracture CT left ankle - neg for fx. Soft tissue swelling Pain management PT and OT ordered ETOH Substance abuse Pt is requesting inpatient drug and alcohol rehab. Consulted to Case Management to assist NPsych consulted Pt to follow up with [facility] for outpatient treatment. - Attending Attestation The exam, history, and the medical decision-making described in the above note were completed with the assistance of the mid-level provider. I reviewed and agree with the findings presented. I attest that I had a [id number] encounter with the patient on the same day, and personally performed and documented my assessment and findings in the medical record. (1) Pneumothorax Qualifiers: Pneumothorax type: traumatic Encounter type: initial encounter Qualified Code(s): S27.0XXA - Traumatic pneumothorax, initial encounter (2) Fracture of rib Qualifiers: Encounter type: initial encounter Rib fracture type: multiple ribs Fracture type: closed Laterality: left Qualified Code(s): S22.42XA - Multiple fractures of ribs, left side, initial encounter for closed fracture
[2017-12-15] MEDS: Lidocaine 5% Patch T-DERMAL SCH (09:19)
[2017-12-15] MEDS: Enoxaparin Inj 40 MG/0.4 ML Syringe SQ SCH (09:20)
[2017-12-15] MEDS: Docusate Sodium 100 MG Capsule PO SCH ×2 (09:20→20:19)
[2017-12-15] MEDS: HYDROmorphone PF Inj 2 MG/ML Vial IV.PUSH PRN ×3 (09:21→20:19)
[2017-12-15] MEDS: Pantoprazole Inj 40 MG Vial IV.PUSH SCH (20:19)
[2017-12-16] MEDS ORDERED: Acetaminophen 325 MG Tablet PO PRN (03:42)
[2017-12-16] MEDS: HYDROmorphone PF Inj 2 MG/ML Vial IV.PUSH PRN ×6 (03:59→22:08)
[2017-12-16] MEDS: Ketorolac Inj 30 MG/ML (IVP) Vial IV.PUSH SCH ×4 (05:40→22:11)
[2017-12-16] MEDS: diazePAM 2 MG Tablet PO SCH ×3 (05:40→20:38)
[2017-12-16] MEDS: Lidocaine 5% Patch T-DERMAL SCH (08:06)
[2017-12-16] MEDS: Enoxaparin Inj 40 MG/0.4 ML Syringe SQ SCH (08:07)
[2017-12-16] MEDS: Docusate Sodium 100 MG Capsule PO SCH ×2 (08:08→20:38)
--- NOTE | 2017-12-16 08:33 | P.PNNPSY ---
- Behavior Intact: Impulsive/agitated - Cognitive Intact: Cognitive, Attention/concentration, Confused/orientation, Insight/ awareness, Judgment/problem solving, Memory - Psychosocial Severe: Psychosocial, Family/other adjustment, Realistic expectation - Progress Notes/Response to Treatment Contents of Sessions: Adjustment, Level of consciousness Time with Patient: 15 minutes Premorbid Psychological Status: Premorbid Cognitive, Emotional and Behavioral Status: Tenuous. The patient has high school years of education and no consistent work history prior to this injury. He was on SSDI. The patient has prior psychiatric difficulties, as described above. Substance abuse history includes opiates, benzos and THC. Behavioral Reactions of Patient and Family/Support System: Unable to Assess. The patients family is experiencing ongoing issues of adjustment given the nature of the injury, and this aspect of recovery will require ongoing monitoring. Emotional/Behavioral Status of Patient and Family/Support System: Unable to Assess. Pertinent issues, if appropriate to this patients clinical care, are described in detail above. Maximizing Acute Care Outcome: At this point in the recovery process, the patient does have cognitive capacity as the patient is able to understand a situation and its likely consequences, and he is able to manipulate information rationally. Cognitive capacity will be assessed throughout the recovery process. Anticipated Problems: Ongoing areas of concern will include behavioral impulsivity, lack of insight and judgment, which is expected to improve with time and treatment. He will need to be monitored for his polysubstance dependence. Treatment Plan: This clinician will continue to follow with you throughout the course of this patients acute care treatment, and I will be available to meet with the patient s family/support system to facilitate their understanding and the ongoing care of their family member. The goals of neuropsychological intervention shall be both educational and supportive to the family/support system as is deemed clinically appropriate. Disinhibition Score: 17.50 Aggression Score: 14.00 Lability Score: 14.00 Agitated Behavior Total Score: 16 Impression: This patient has a history of antisocial acts and polysubstance dependence who reports that he wishes to attend drug rehabilitation as well as assistance with notifying the course of his inability to attend a court date. From a neuropsychological perspective, he demonstrates no cognitive incapacitating findings that would call into question his decision making capacity. He was told that he would need to contact drug rehabilitation on his own in order to demonstrate his sincerity with their program. Progress Note Narrative: PTD 3. The patient is stable, complaining of pain. Voices desire to go to drug rehab, and told that he will have to initiate the contact with S[facility]add[facility]. ABS is 16 (17.5,14,14). No issues of agitation/restlessness. I will follow.
--- NOTE | 2017-12-16 09:27 | XR ---
EXAM DATE: 12/16/2017 9:08 AM EDT AGE/SEX: 47 years / Male INDICATIONS: Chest pain. Short of breath. Evaluate pneumothorax. CLINICAL DATA: This is the patient's subsequent encounter. Patient reports that signs and symptoms h ave been present for 4 - 6 days and indicates a pain score of 5/10. MEDICAL/SURGICAL HISTORY: None. None. COMPAR[place]: [facility] [place] 1[place] SINGLE AP[place]15/[place]. . FINDINGS: The previously identified very small left apical pneumothorax cannot be clearly identified on the cur rent study. Left chest tube remains in place. Diffuse interstitial prominence remains evident throughout the left lung. CONCLUSION: Left apical pneumothorax is no longer radiographically apparent. Otherwise stable chest Electronically signed by: Jw Eduardo MD 12/16/2017 9:25 AM EDT
--- NOTE | 2017-12-16 11:13 | P.PN ---
Subjective Interval history: Trauma PTD: 4 Patient lying in bed. No distress noted. Patient states, "the pain is so bad. I cannot sleep because of the pain." Patient states, "I have been having fevers." "I have been so exhausted, I cannot get out of bed." Physical Exam Vital signs: Vital Signs 12/15/17 12:00 12/15/17 16:00 12/15/17 20:00 Temperature 98.4 F 98 F 99.1 F Pulse Rate 78 75 113 H Respiratory Rate 18 18 16 Blood Pressure 135/71 161/101 H 163/87 H Pulse Oximetry 96 97 96 12/16/17 00:00 12/16/17 03:34 12/16/17 04:13 Temperature 100.1 F H 102.2 F H 99.8 F H Pulse Rate 96 H 111 H Respiratory Rate 16 17 Blood Pressure 139/80 158/85 H Pulse Oximetry 95 94 L 12/16/17 07:26 12/16/17 08:00 Temperature 98.5 F Pulse Rate 95 H Respiratory Rate 8 L 18 Blood Pressure 155/98 H Pulse Oximetry 95 Intake & Output 12/15/17 12/16/17 12/16/17 18:59 06:59 18:59 Intake Total 1420 / 1420 400 / 400 Output Total 910 / 910 1400 / 1400 Balance 510 / 510 -1000 / -1000 Weight 68.5 kg Intake: Oral 1420 / 1420 400 / 400 Output: Urine 850 / 850 1350 / 1350 Pleural Fluid 60 / 60 Chest Tube Drainage 50 / 50 Left Mid-Axillary Chest 50 / 50 Other: Date of Last Bowel Movement 12/13/17 # Bowel Movements 0 Narrative: GENERAL: This is a 47-year-old male lying in bed. No distress SKIN: Warm and dry. HEAD: Atraumatic. Normocephalic. EYES: PERRLA ENT: No nasal bleeding or discharge. Mucous membranes pink and moist. NECK: Trachea midline. No JVD. CARDIOVASCULAR: Regular rate and rhythm. RESPIRATORY: No accessory muscle use. Lungs are clear to auscultation. Breath sounds equal bilaterally. No distress or dyspnea. Left lateral chest tube in place to Pleur-evac drainage system. No air leak noted. Dressing CDI. GASTROINTESTINAL: BS + x 4 quads. Abdomen soft, non-tender, nondistended. MUSCULOSKELETAL: Extremities without cyanosis, or edema. Slight swelling to left ankle area. + peripheral pulses x 4 extremities. Warm with good capillary refill and sensation. MAEW. NEUROLOGICAL: Awake and alert. Normal speech and pattern. Results - Labs CBC & Chem 7: 12/14/17 04:45 12/14/17 04:45 - Imaging Impressions Chest X-Ray 12/16/17 07:52 CONCLUSION: Left apical pneumothorax is no longer radiographically apparent. Otherwise stable chest Assessment and Plan - Assessment (1) Pneumothorax Code(s): J93.9 - Pneumothorax, unspecified Status: Acute (2) Fracture of rib Code(s): S22.39XA - Fracture of one rib, unspecified side, initial encounter for closed fracture Status: Acute - Plan [place]: This is a 47 year old male who sustained a fall. The patient states that he fell through a window as he was trying to put a new window frame in his bedroom. He came to the hospital because he developed chest pain, and shortness of breath. INJURIES: LEFT eyebrow laceration (dermabond) LARGE LEFT rib fx (4,5,6,7) LEFT PTX PMHx: Cervical fusion surgery. LEFT ankle surgery. Smoker. ETOH. Substance abuse. Procedures: 12/12: Left chest tube placement Consults: Case management. Diet: Regular diet. Tolerating po diet. Encourage good po intake with each meal. Fever overnight: 102.2F. Will obtain cultures with next temperature spike. Pulmonary: Encourage good pulmonary toileting. IS at bedside and pt encouraged to use. Rationale for use explained to patient, and verbalized understanding. AM CXR shows NO PTX. Left lateral chest tube in place to Pleur-evac drainage system decreased to. Dressing CDI. No air leak noted. Chest tube output = 50 ml / 24 hrs. Follow up CXR in the AM. PAIN Management: Oxycodone 5-10 mg q 4h. Dilaudid 1 mg q 3h for breakthrough pain. Valium 2 mg q 8h. Toradol 15 mg q 6h. Lidoderm patch. Sleep: Melatonin 5 mg q HS Activity: OOB. PT ordered. GI prophylaxis: Protonix 40 mg IV Bowel regimen: Colace. MOM PRN. LBM: o DVT prophylaxis: Mechanical VTE with SCDs. Chemical management with Lovenox 40 mg QD SQ. DC Planning: Case management consulted for assistance with final discharge disposition. Plan for discharge in 1-2 days once pain managed, and chest tube has been removed without incident. Emotional support provided to patient and family at bedside and plan of care discussed. Discussed with RN at bedside during trauma rounds. Discussed pt condition and plan of care with collaborating trauma surgeon. Patient is hemodynamically stable and managed on the med/surg floor. The trauma team will round each day, and evaluate plan of care on a daily basis. LARGE LEFT rib fx (4,5,6,7) LEFT PTX O2 nasal cannula as needed Supportive care Aggressive pulmonary toileting AM CXR shows NO PTX. Left lateral chest tube in place to Pleur-evac drainage system decreased to waterseal. No air leak noted. Dressing CDI- Chest tube output = 50 ml / 24 hrs Follow-up chest x-ray in the morning. Daily chest tube dressing changes Pain management PT ordered Encourage out of bed Bowel regimen DVT prophylaxis Left ankle pain and swelling Supportive care X-ray left ankle/3 views is negative for fracture CT left ankle - neg for fx. Soft tissue swelling Pain management PT and OT ordered ETOH Substance abuse Pt is requesting inpatient drug and alcohol rehab. Consulted to Case Management to assist NPsych consulted Pt to follow up with [facility] for outpatient treatment. - Attending Attestation The exam, history, and the medical decision-making described in the above note were completed with the assistance of the mid-level provider. I reviewed and agree with the findings presented. I attest that I had a [id number] encounter with the patient on the same day, and personally performed and documented my assessment and findings in the medical record. (1) Pneumothorax Qualifiers: Pneumothorax type: traumatic Encounter type: initial encounter Qualified Code(s): S27.0XXA - Traumatic pneumothorax, initial encounter (2) Fracture of rib Qualifiers: Encounter type: initial encounter Rib fracture type: multiple ribs Fracture type: closed Laterality: left Qualified Code(s): S22.42XA - Multiple fractures of ribs, left side, initial encounter for closed fracture
[2017-12-16] MEDS ORDERED: Melatonin 5 MG Tablet PO PRN (11:15)
[2017-12-16] MEDS: Pantoprazole Inj 40 MG Vial IV.PUSH SCH (20:39)
[2017-12-17] MEDS: Ketorolac Inj 30 MG/ML (IVP) Vial IV.PUSH SCH ×2 (04:39→10:57)
[2017-12-17] MEDS: HYDROmorphone PF Inj 2 MG/ML Vial IV.PUSH PRN ×2 (04:39→08:49)
[2017-12-17] MEDS: diazePAM 2 MG Tablet PO SCH ×2 (04:39→14:30)
--- NOTE | 2017-12-17 07:10 | XR ---
EXAM DATE: 12/17/2017 7:08 AM EDT AGE/SEX: 47 years / Male INDICATIONS: Short of breath, pain left chest, evaluate left chest tube CLINICAL DATA: This is the patient's subsequent encounter. Patient reports that signs and symptoms h ave been present for 4 - 6 days and indicates a pain score of 8/10. MEDICAL/SURGICAL HISTORY: . pneumothorax, scoliosis Chest tube, left. cervical spine fusion COMPARISON: [facility], CHEST 1V SINGLE AP, 12/16/2017. . FINDINGS: Left thoracostomy tube remains in place. There is no evidence of pneumothorax. There is worsening con solidative change in the left lung base with associated small effusion. Mild parenchymal opacity deve loping in the right base. Cardiac contours are grossly stable accounting for rotation and scoliotic c urvature. CONCLUSION: Worsening aeration. No pneumothorax Electronically signed by: Cristobal Munoz MD 12/17/2017 7:09 AM EDT
--- NOTE | 2017-12-17 08:26 | P.PNNPSY ---
- Behavior Intact: Impulsive/agitated - Cognitive Intact: Cognitive, Attention/concentration, Confused/orientation, Insight/ awareness, Judgment/problem solving, Memory - Psychosocial Severe: Psychosocial, Family/other adjustment, Realistic expectation - Progress Notes/Response to Treatment Contents of Sessions: Adjustment Time with Patient: 15 minutes Premorbid Psychological Status: Premorbid Cognitive, Emotional and Behavioral Status: Tenuous. The patient has high school years of education and no consistent work history prior to this injury. He was on SSDI. The patient has prior psychiatric difficulties, as described above. Substance abuse history includes opiates, benzos and THC. Behavioral Reactions of Patient and Family/Support System: Unable to Assess. The patients family is experiencing ongoing issues of adjustment given the nature of the injury, and this aspect of recovery will require ongoing monitoring. Emotional/Behavioral Status of Patient and Family/Support System: Unable to Assess. Pertinent issues, if appropriate to this patients clinical care, are described in detail above. Maximizing Acute Care Outcome: At this point in the recovery process, the patient does have cognitive capacity as the patient is able to understand a situation and its likely consequences, and he is able to manipulate information rationally. Cognitive capacity will be assessed throughout the recovery process. Anticipated Problems: Ongoing areas of concern will include behavioral impulsivity, lack of insight and judgment, which is expected to improve with time and treatment. He will need to be monitored for his polysubstance dependence. Treatment Plan: This clinician will continue to follow with you throughout the course of this patients acute care treatment, and I will be available to meet with the patient s family/support system to facilitate their understanding and the ongoing care of their family member. The goals of neuropsychological intervention shall be both educational and supportive to the family/support system as is deemed clinically appropriate. Disinhibition Score: 17.50 Aggression Score: 14.00 Lability Score: 14.00 Agitated Behavior Total Score: 16 Impression: This patient has a history of antisocial acts and polysubstance dependence who reports that he wishes to attend drug rehabilitation as well as assistance with notifying the course of his inability to attend a court date. From a neuropsychological perspective, he demonstrates no cognitive incapacitating findings that would call into question his decision making capacity. He was told that he would need to contact drug rehabilitation on his own in order to demonstrate his sincerity with their program. Progress Note Narrative: PTD 4. The patient remains neurobehaviorally stable, no increases in agitation/ restlessness, with ABS = 16 (17.5,14,14). He still has chest tube, which is being d/c'ed today. He will be discharged after that. There are no neurobehavioral impediments to his discharge.
[2017-12-17] MEDS: Enoxaparin Inj 40 MG/0.4 ML Syringe SQ SCH (08:44)
[2017-12-17] MEDS: Docusate Sodium 100 MG Capsule PO SCH (08:44)
[2017-12-17] MEDS: Lidocaine 5% Patch T-DERMAL SCH (08:45)
--- NOTE | 2017-12-17 12:34 | XR ---
EXAM DATE: 12/17/2017 12:31 PM EDT AGE/SEX: 47 years / Male INDICATIONS: Post chest tube removal from left side CLINICAL DATA: This is the patient's subsequent encounter. Patient reports that signs and symptoms h ave been present for 4 - 6 days and indicates a pain score of 2/10. MEDICAL/SURGICAL HISTORY: . pneumothorax, scoliosis . chest tube, left, cervical fusion COMPARISON: [facility], CHEST 1V SINGLE AP, 12/17/2017. . FINDINGS: S-shaped thoracolumbar scoliosis. ACDF hardware overlies the cervical spine. Left-sided chest tube harrington s been removed. I do not see a pneumothorax. There is left lower lobe consolidation identified. Small amount of subcutaneous air is seen. Left-sided rib fractures are again seen. CONCLUSION: No obvious pneumothorax. Electronically signed by: Juancarlos Reynoso MD 12/17/2017 12:32 PM EDT
--- NOTE | 2017-12-17 17:46 | P.DS ---
Date of admission: 12/12/17 17:57 Primary care physician: No Primary Care Physician Brief History from admission: S/P fall DS: Diagnosis - Discharge Diagnosis (1) Ankle sprain Status: Acute (2) Pneumothorax Status: Acute (3) Fracture of rib Status: Acute DS: Medications - Discharge Medications Prescriptions: ibuprofen [Motrin IB] 400 mg PO Q6H PRN 5 Days tab PRN Reason: Pain oxycodone-acetaminophen [Percocet] 1 tab PO Q4-6H PRN #18 tab PRN Reason: Acute Pain DS: Summary Hospital Course: VIEJAS:Fell through a window frame while hanging a window. Tox screen = + Opiates. +Benzos. + Cannibis. INJURIES: LEFT eyebrow laceration LEFT rib fxs (4,5,6,7) LEFT PTX PMHx: Tobacco use. ETOH abuse. Substance abuse. LEFT rib fxs, LEFT PTX Supportive care Pulmonary toileting AM CXR shows No PTX CT pulled at bedside without complication CXR post CT removal shows no PTX Keep current CT dressing in place x48 hours then may remove and shower. OOB- PT ordered. No home DC needs Pain control Bowel regimen Left ankle sprain Supportive care X-ray ankle negative CT left ankle - neg for fx. Soft tissue swelling Pain control WBAT PT and OT ordered ETOH, Substance abuse Counseled to abstain from ETOH and illegal substances NeuroPsych consulted Pt to follow up with [facility] for outpatient treatment CM provided patient with contact info for multiple facilities F/U with PCP in 1 week Plan of care discussed with patient and RN at bedside. Collaborating Trauma MD agrees with plan. Case management consulted to assist with discharge planning. Patient is clear from Trauma surgery to safely discharge home. - Time Spent with Patient Total time spent providing and/or coordinating discharge services: Greater than 30 minutes - Quality: VTE Deep Vein Thrombosis/Pulmonary Embolism Present on Admission: No Exam Vital signs: Vital Signs 12/16/17 19:01 12/17/17 00:05 12/17/17 08:00 Temperature 98.4 F 97.8 F 99.1 F Pulse Rate 113 H 113 H 94 H Respiratory Rate 18 18 18 Blood Pressure 143/72 H 134/79 132/70 Pulse Oximetry 92 L 92 L 95 12/17/17 09:30 12/17/17 12:00 Temperature 98.2 F Pulse Rate 99 H Respiratory Rate 16 18 Blood Pressure 152/86 H Pulse Oximetry 95 Intake & Output 12/16/17 12/17/17 12/17/17 18:59 06:59 18:59 Intake Total 960 / 960 480 / 480 Output Total 40 / 40 40 / 40 Balance 920 / 920 440 / 440 Weight 68.2 kg Intake: Oral 960 / 960 480 / 480 Output: Chest Tube Drainage 40 / 40 40 / 40 Left Mid-Axillary Chest 40 / 40 40 / 40 Other: # Voids 4 4 Date of Last Bowel Movement 12/13/17 12/13/17 # Bowel Movements 0 Narrative: GENERAL: 47 year old well-nourished male lying in bed in no acute distress. SKIN: Warm and dry. HEAD:Normocephalic. ENT: No nasal bleeding or discharge. Mucous membranes pink and moist. NECK: Trachea midline. No JVD. CARDIOVASCULAR: Regular rate and rhythm. RESPIRATORY: No accessory muscle use. Clear to auscultation. Breath sounds equal bilaterally. LEFT lateral CT secured to pleura vac system on water seal. No air leak noted. GASTROINTESTINAL: Abdomen soft, non-tender, nondistended. + BS MUSCULOSKELETAL: Extremities without cyanosis, +1 left ankle edema. MAEW, + perfused NEUROLOGICAL: Awake and alert. Normal speech. - Routine HEENT Exam Eye: Present: implant Results Procedures completed during hospitalization: 12/12: LEFT CT placement 12/17: LEFT CT removed - Impressions ITS Impressions Ankle X-Ray 12/12/17 13:04 CONCLUSION: Degenerative changes identified at the tibiotalar articulation. No other abnormality identified. Old surgical hardware without visible fractures present. Ribs X-Ray 12/12/17 13:04 CONCLUSION: Large left-sided pneumothorax associated with 2 nondisplaced fractures of the left sixth and seventh rib. Extensive subcutaneous air. Ankle CT 12/14/17 00:00 CONCLUSION: 1. Moderate artifact from hardware. I don't see a defined fluid collection. I don't see any bony destruction. Chest X-Ray 12/17/17 13:00 CONCLUSION: No obvious pneumothorax. Discharge Plan - Discharge Disposition Patient Disposition: 01 Discharge Home - Discharge Condition Condition: Stable - Discharge Order Discharge Orders: Discharge Order (Routine); Ordered 12/17/17 Ordered By: Elizabeth Davis - Physicians Team Primary Care Provider: Primary Care Physici,No Attending Provider: Shaheen De Paz Other Providers: Braulio Pena MD ; Willie Salguero MD ; Systems, [employer] [facility] ; Shaheen De Paz MD ; Sarah Nichols ARNP ; Vijay Garsia MD ; Jeanna Fagan MD ; Elizabeth Davis ARNP ; Marita Finn MD ; Regino Patel, PhD
== END 2017-12-17 15:36 | disposition home or self-care (01) ==
LOC: NEPC 12:24 → NEDA 17:57 → N03 21:24 → N06 12-13 18:07
PROVIDERS: ADMIT Surgery; ATTEND Surgery